=== PATIENT | male | born 1990 | race Caucasian/White ===

== ENCOUNTER 2016-10-07 09:57 | Emergency (ER) | payer OTHER ==
[2016-10-07 10:42] VITALS: BP 115/70
--- NOTE | 2016-10-07 10:49 | UC ---
Skin Complaint HPI - HPI Summary HPI Summary: Pt presents with c/o scattered erythematous, flat "dots" on left upper extremity and right side of neck X 2 weeks. denies pruritis, tenderness, drainage or known injury or insect bite. - History of Current Complaint Time Seen by Provider: 10/07/16 10:36 Stated Complaint: SKIN COMPLAINT Hx Obtained From: Patient Onset/Duration: Gradual Onset, Lasting Weeks - 4? Timing: Constant Onset Severity: Mild Current Severity: Mild Location: Other - scattered left upper extremity, right side of neck Character: Redness Aggravating: Nothing Alleviating: Nothing Associated Signs & Symptoms: Positive: Rash - Allergy/Home Medications Allergies/Adverse Reactions: Allergies Allergy/AdvReac Type Severity Reaction Status Date / Time Penicillins Allergy Unknown Verified 10/07/16 10:37 Reaction Details Home Medications: Home Medications Anti Anxiety Med DAILY 10/07/16 [History] Review of Systems Constitutional: Negative Skin: Rash Eyes: Negative ENT: Negative Respiratory: Negative Cardiovascular: Negative Gastrointestinal: Negative Genitourinary: Negative Motor: Negative Neurovascular: Negative Musculoskeletal: Negative Neurological: Negative Psychological: Negative All Other Systems Reviewed And Are Negative: Yes PMH/Surg Hx/FS Hx/Imm Hx Previously Healthy: Yes - Surgical History Surgical History: None - Family History Known Family History: Positive: Cardiac Disease - Social History Alcohol Use: Occasionally Substance Use Type: None Smoking Status (MU): Never Smoked Tobacco Physical Exam Triage Information Reviewed: Yes Appearance: Well-Appearing Vital Signs: Initial Vital Signs Temp 97.6 F 10/07/16 10:38 Pulse 104 10/07/16 10:38 Resp 14 10/07/16 10:38 BP 115/70 10/07/16 10:38 Pulse Ox 97 10/07/16 10:38 Eye Exam: Normal ENT Exam: Normal Neck exam: Normal Neck: Positive: Other: - flat blancheable, dime size scattered dots on right side neck. Respiratory Exam: Normal Cardiovascular Exam: Normal Musculoskeletal Exam: Normal Neurological Exam: Normal Psychological Exam: Normal Skin Exam: Other Skin: Positive: rashes - right side of neck , flat, blanchable erythematous dime size area on right side of neck and lef orestes extremity ~ 5 dots on neck and 10 on left extremity Course/Dx - Differential Diagnoses - Skin Complaint Differential Diagnoses: Local Allergic Reaction, Other - Diagnoses Provider Diagnoses: folliculitis. insect bites? Discharge - Discharge Plan Condition: Stable Disposition: HOME Patient Education Materials: Folliculitis (ED) Referrals: [facility] [Outside] Sarah Camarillo [Medical Doctor] -
== END 2016-10-07 11:03 | disposition home or self-care (01) ==
LOC: UCCORT 09:57
DX: L73.9 Follicular disorder, unspecified (principal)
CPT/HCPCS: 99201; G0463